=== PATIENT | female | born 1995 | race Caucasian/White ===

== ENCOUNTER 2020-02-15 16:22 | Outpatient (CLI) | payer SELFPAY ==
[2020-02-17 12:14] LABS: SARS-CoV-2 RNA PCR Negative
== END 2020-02-15 16:23 | disposition home or self-care (01) ==
PROVIDERS: PCP Family Medicine; Visit Provider Family Medicine
DX: Z20.828 Contact with and (suspected) exposure to other viral communicable diseases (principal)
CPT/HCPCS: 87635; C9803; U0003

== ENCOUNTER 2020-10-05 19:42 | Emergency (ER) | payer SELFPAY ==
--- NOTE | ~2020-10-05 | XR_ITS ---
EXAMINATION: XR chest 1V portable INDICATION: Midsternal chest pain TECHNIQUE: Portable AP chest at 2044 hours COMPARISON: 11/29/2014 FINDINGS: The lungs are free of acute opacities. There is no pleural effusion or pneumothorax. The ca rdiomediastinal silhouette is normal. The visualized bones and soft tissues are unremarkable. IMPRESSION: 1. No acute cardiopulmonary abnormality. Reviewed, dictated and finalized at location A.
[2020-10-05 19:42] VITALS: BP 144/100; PULSE 109; RESP 20; TEMP 36.8; O2SAT 100
[2020-10-05 19:55] VITALS: PULSE 116
--- NOTE | 2020-10-05 20:06 | ECG_ITS ---
Measurements Intervals [place] Rate: 98 P: 78 CA: 146 QRS: 93 QRSD: 90 T: 73 QT: 361 QTc: 461 Interpretive Statements SINUS RHYTHM RIGHT AXIS DEVIATION BASELINE ARTIFACT- II, III, AVL, AVF, V1-V2 BORDERLINE ECG Electronically Signed On 10-06-2020 7:47:58 CDT by Gonzalo Ruiz D.O.
--- NOTE | 2020-10-05 20:24 | ED.CHESTPAIN ---
HPI - Chest Pain General Chief Complaint: Chest Pain Stated Complaint: chest pain Time Seen by Provider: 10/05/20 19:45 Source: patient, RN notes reviewed and police Mode of arrival: ambulatory Limitations: no limitations History of Present Illness MD complaint: chest pain (mild left chest pain x 1 hr.) Pertinent past history: other (pt occasionally has chest pain, during panic attacks.) Onset (ago): hour(s) (1) Timing of current episode: episodic Prior episodes: Yes Onset: during exertion Pain location: left chest Pain radiation: none Severity: mild Pain scale (0-10): 3 Quality: aching and dull Relieving factors: nothing Exacerbating factors: exertion Treatment prior to arrival: none Risk Factors Coronary artery disease risk factors: smoking history Thoracic aortic dissection risk factors: none Related Data Home Medications Medication Instructions Recorded Confirmed No Home Medications 08/17/20 10/05/20 Allergies Allergy/AdvReac Type Severity Reaction Status Date / Time Sulfa (Sulfonamide Allergy Unknown Unknown Verified 08/17/20 14:26 Antibiotics) Sulfonamides Allergy Intermediate Unknown Uncoded 08/17/20 14:26 Review of Systems Review of Systems: All systems reviewed & are unremarkable except as noted in HPI and below Constitutional: Constitutional: Reports as per HPI and Reports no additional constitutional complaints Eyes: Eyes: Reports as per HPI and Reports no additional eye complaints ENT: Reports system reviewed and no additional complaints, except as documented and Reports as per HPI Cardiovascular: Cardiovascular: Reports as per HPI and Reports no additional cardiovascular complaints Respiratory: Respiratory: Reports as per HPI and Reports no additional respiratory complaints Gastrointestinal: Gastrointestinal: Reports as per HPI and Reports no additional gastrointestinal complaints Genitourinary: Genitourinary: Reports no additional female genitourinary complaints and Reports as per HPI Musculoskeletal: Musculoskeletal: Reports no additional musculoskeletal complaints and Reports as per HPI Integumentary/Breasts: Skin/Breast: Reports system reviewed and no additional complaints, except as docu and Reports as per HPI Neurologic: Reports system reviewed and no additional complaints, except as documented and Reports as per HPI Psychiatric: Psychiatric: Reports no additional psychiatric complaints and Reports as per HPI Endocrine: Endocrine: Reports no additional endocrine complaints and Reports as per HPI Hematologic/Lymphatic: Hematologic/Lymphatic: Reports no additional hematologic/lymphatic complaints and Reports as per HPI Allergic/Immunologic: Allergic/Immunologic: Reports no additional allergic/immunologic complaints and Reports as per HPI PMFSH Past Medical History Medical History Panic attack as reaction to stress Family History Family History Grandparent Diabetes mellitus Hypertension Family history of malignant neoplasm of cervix Social History Social History Smoking status: Former smoker Smoking end date: 03/09/15 Alcohol intake: never Substance use type: marijuana Exam Const: General: healthy appearing, no acute distress and alert Nutritional Appearance: well nourished Orientation/consciousness: patient oriented x3 Limitations: no limitations HENMT: Head: normal to inspection Ears: external ears normal and TM's normal bilaterally General nose exam: Normal external nose present and Normal nares present Mouth: Yes moist mucous membranes Eyes: Conjunctivae: conjunctivae normal Pupils: Equal, round and reactive pupils present EOM: EOMs intact bilaterally Neck: Neck: normal visual inspection and no lymphadenopathy Chest: Chest palpation & inspection: normal inspection of the chest Re
[2020-10-05 20:29] LABS: Basophils Absolute Auto 0.06 K/mm3 (0.00-0.10); Basophils Percent Auto 0.8 % (0.0-1.0); Eosinophils Absolute Auto 0.42 K/mm3 (0.02-0.50); Eosinophils Percent Auto 5.8 % (1.0-6.0); Hematocrit 38.8 % (35.0-49.0); Hemoglobin 12.9 g/dL (12.0-15.0); Immature Granulocyte Absolute 0.02 K/mm3 (0.00-0.00); Immature Granulocyte Percent A 0.3 % (0.0-0.0); Lymphocytes Absolute Auto 2.87 K/mm3 (1.10-4.50); Lymphocytes Percent Auto 39.8 % (18.0-42.0); Mean Corpuscular HGB Conc 33.2 g/dL (32.0-36.0); Mean Corpuscular Hemoglobin 30.1 pg (27.0-31.0); Mean Corpuscular Volume 90.7 fL (78.0-102.0); Mean Platelet Volume 8.9 fl (9.2-11.8); Monocytes Absolute Auto 0.49 K/mm3 (0.10-0.90); Monocytes Percent Auto 6.8 % (2.0-11.0); Neutrophils Absolute Auto 3.4 K/mm3 (1.7-7.2); Neutrophils Percent Auto 46.5 % (50.0-70.0); Platelet Count Result 267 K/mm3 (150-420); Red Blood Count 4.28 M/mm3 (4.20-5.40); White Blood Count 7.2 K/mm3 (4.8-10.8)
[2020-10-05 20:46] LABS: Alanine Aminotransferase 39 U/L (14-59); Alkaline Phosphatase 39 U/L (46-116); Anion Gap 12 mmol/L (8-16); Aspartate Amino Transferase 17 U/L (15-37); Bilirubin,Total 0.3 mg/dL (0.00-1.00); Blood Urea Nitrogen 13 mg/dL (7-18); Calcium 8.5 mg/dL (8.5-10.1); Carbon Dioxide 26 mmol/L (21-32); Chloride 105 mmol/L (98-108); Estimated CRCL calculation 83 ml/min; Estimated Glomerular Filt Rate > 60; Glucose 95 mg/dL (70-99); Osmolality Calculated 296 mOsm/kg (285-295); Potassium 3.8 mmol/L (3.5-5.1); SPREG INTERNAL CONTROL Positive; Serum Qual hCG Negative; Sodium 143 mmol/L (136-145); Total Protein 6.4 g/dL (6.4-8.2); Troponin I < 4.0 ng/L (0.00-60.4)
[2020-10-05] MEDS: IBUPROFEN 400 MG TABLET 800 MG PO (20:52)
[2020-10-05] MEDS: ASPIRIN 325 MG ENTERIC TABLET PO (20:52)
[2020-10-05 20:53] VITALS: BP 139/91; PULSE 80; RESP 17; TEMP 36.6; O2SAT 99
== END 2020-10-05 21:02 | disposition home or self-care (01) ==
PROVIDERS: Emergency Provider Emergency Medicine; PCP Family Medicine
DX: R07.89 Other chest pain (principal)
CPT/HCPCS: 36415; 71045; 80053; 84484; 84703; 85025; 93005; 99283; 99284; A9270

== ENCOUNTER 2021-04-02 01:54 | Emergency (ER) | payer MEDICAID, SELFPAY ==
--- NOTE | 2021-04-02 02:03 | ED.ABDPAIN ---
HPI - Abdominal Pain General Chief Complaint: Abdominal Pain Stated Complaint: Adominal pain Time Seen by Provider: 04/02/21 02:03 Source: patient Mode of arrival: ambulatory Limitations: no limitations History of Present Illness HPI narrative: 26-year-old woman comes in today complaining low abdominal pain that is worse with movement, cough and sneeze, and after eating. She states that she feels nauseated when the pain is at its worst. She states that she had fever approximately 5 days ago after having had some back pain. She has had her no fever since and has vaginal discharge. She has had a COVID exposure recently. Patient expressed concern about her IUD. She denies prior abdominal surgeries. She smokes marijuana. She has had no dysuria, hematuria, diarrhea, cough or cold symptoms, or anorexia. MD elicited complaint: abdominal pain Onset (ago): day(s) (5) Pain Consistency: constant Location: pelvis Severity: severe Radiation: none Migration to: no migration Exacerbating factors: eating and movement Relieving factors: nothing Associated symptoms: nausea, vomiting and fever Related Data Home Medications Medication Instructions Recorded Confirmed No Home Medications 08/17/20 10/05/20 Allergies Allergy/AdvReac Type Severity Reaction Status Date / Time Sulfa (Sulfonamide Allergy Unknown Unknown Verified 08/17/20 14:26 Antibiotics) Sulfonamides Allergy Intermediate Unknown Uncoded 08/17/20 14:26 Review of Systems Review of Systems: All systems reviewed & are unremarkable except as noted in HPI and below Constitutional: Constitutional: Reports fever(s) ENT: Denies nasal congestion and Denies sore throat Cardiovascular: Cardiovascular: Denies chest pain Respiratory: Respiratory: Denies cough and Reports dyspnea Gastrointestinal: Gastrointestinal: Reports abdominal pain, Denies diarrhea, Reports nausea and Reports vomiting Genitourinary: Genitourinary: Denies hematuria, Denies nocturia, Denies dysuria and Reports vaginal discharge Musculoskeletal: Musculoskeletal: Reports back pain, Denies arthralgias and Denies joint swelling Integumentary/Breasts: Skin/Breast: Denies pruritus, Denies erythema and Denies rash Neurologic: Denies vertigo, Denies dizziness and Denies syncope PMFSH Past Medical History Medical History Panic attack as reaction to stress Surgical History Surgical History H/O eye surgery History of Family History Family History Grandparent Diabetes mellitus Hypertension Family history of malignant neoplasm of cervix Social History Social History Smoking status: Current every day smoker Smoking end date: 03/09/15 Alcohol intake: never Substance use type: marijuana Living arrangements: with friend(s) Exam Const: General: healthy appearing and alert Orientation/consciousness: patient oriented x3 Limitations: no limitations Other: Moderate acute distress patient Eyes: Conjunctivae: conjunctivae normal Pupils: Equal, round and reactive pupils present EOM: EOMs intact bilaterally Resp: Effort & Inspection: normal respiratory effort and not labored Auscultation: clear to auscultation bilaterally, no rales, no rhonchi and no wheezes Cardio: Rate: regular rate Rhythm: regular rhythm Heart sounds: no murmurs GI: GI Palp: Yes Soft to palpation, Yes Tenderness to palpation present (GI) (Right left lower quadrants) and No Guarding due to palpation present (GI) Auscultation: normal bowel sounds Skin: General skin exam: normal color, no jaundice and no pallor Rashes: no rashes Neuro: General: patient oriented x3, moves all extremities, no focal motor deficits and CN's II-XI intact bilaterally Speech: normal speech Gait exam (Neuro): No
[2021-04-02 02:08] VITALS: BP 123/85; PULSE 120; RESP 16; TEMP 37.9; O2SAT 100
--- NOTE | 2021-04-02 02:49 | PC.NURSE ---
Patient refuses IV and lab draw. RN states that we are taking too long and I can't wait any longer.
[2021-04-02 03:04] LABS: SARS-CoV-2 RNA PCR Negative (Negative)
== END 2021-04-02 02:51 | disposition left against medical advice (07) ==
PROVIDERS: Emergency Provider Emergency Medicine
DX: R10.30 Lower abdominal pain, unspecified (principal); Z20.822 Contact with and (suspected) exposure to COVID-19
CPT/HCPCS: 99282; 99283; C9803; U0003; U0005

== ENCOUNTER 2022-07-17 07:05 | Emergency (ER) | payer OTHER, SELFPAY ==
--- NOTE | ~2022-07-17 | XR_ITS ---
Left Knee Technique: AP, lateral, and oblique views were obtained. Clinical History: Pain Findings: No fracture or dislocation is seen. Osseous alignment is anatomic. There is evidence of shannan or ACL reconstructive surgery. Joint spaces are preserved without degenerative or erosive change. Sof t tissues are unremarkable. No joint effusion is seen. Impression: No acute reality seen. Evidence of prior ACL reconstruction surgery. Reviewed, dictated and finalized at location M. Impression: No acute reality seen. Evidence of prior ACL reconstruction surgery.
[2022-07-17 07:05] VITALS: BP 140/104; PULSE 100; RESP 18; TEMP 37.3; O2SAT 100
--- NOTE | 2022-07-17 07:49 | ED.LOWEXIN ---
HPI - Extremity Injury (Lower) General Chief Complaint: Extremity Injury, Lower Stated Complaint: left knee pain Time Seen by Provider: 07/17/22 07:07 Source: patient Mode of arrival: ambulatory Limitations: no limitations History of Present Illness HPI Narrative: this is a 27-year-old female that presents with left knee pain after she was had a injury approximately 1 week ago, there is currently pain with movement palpation and with weight-bearing with no swelling no bruising patient has had a prior history of ACL repair. No other injuries has good strong brisk popliteal and radial pulse on the left MD complaint: knee injury Onset (ago): week(s) Injury: Left: knee ( tender medial aspect of left knee with movement and palpation) Type of Injury: inversion Place: street/outdoors Severity: mild Severity scale (1-10): 4 Relieving factors: immobilization Exacerbating factors: weight bearing, movement and palpation Context: fall Associated symptoms: snap/pop sensation Related Data Home Medications Medication Instructions Recorded Confirmed No Home Medications 08/17/20 10/05/20 Allergies Allergy/AdvReac Type Severity Reaction Status Date / Time Sulfa (Sulfonamide Allergy Unknown Unknown Verified 07/17/22 07:14 Antibiotics) Sulfonamides Allergy Intermediate Unknown Uncoded 08/17/20 14:26 Review of Systems Review of Systems: All systems reviewed & are unremarkable except as noted in HPI and below PMFSH Past Medical History Medical History Panic attack as reaction to stress Surgical History Surgical History H/O eye surgery History of Family History Family History Grandparent Diabetes mellitus Hypertension Family history of malignant neoplasm of cervix Social History Social History Smoking status: Current every day smoker Smoking end date: 03/09/15 Alcohol intake: never Substance use type: marijuana Living arrangements: with friend(s) Exam Const: General: healthy appearing Nutritional Appearance: well nourished Orientation/consciousness: patient oriented x3 Limitations: no limitations HENMT: Head: normal to inspection Eyes: Conjunctivae: conjunctivae normal Pupils: Equal, round and reactive pupils present EOM: EOMs intact bilaterally Neck: Neck: normal visual inspection, no lymphadenopathy and no meningeal signs Chest: Chest palpation & inspection: normal inspection of the chest Resp: Effort & Inspection: normal respiratory effort Auscultation: clear to auscultation bilaterally Cardio: Rate: regular rate Rhythm: regular rhythm GI: GI Palp: Yes Soft to palpation Auscultation: normal bowel sounds : General: Yes bladder normal to palpation Skin: General skin exam: normal color Rashes: no rashes Wounds: no wounds Neuro: General: patient oriented x3 and moves all extremities Extrem: General: normal to inspection Other: tender left knee medial aspect with palpation and movement with negative drawer sign negative Ana Lilia sign. Psych: Mental Status: mental status grossly normal Affect: normal affect Course Course Emergency Course: Patient declined any pain medication, will apply Skyler wrap and x-rays performed and reviewed with patient which showed no acute fractures. Vital Signs Vital signs: Vital Signs Pulse Rate 100 07/17/22 07:05 Respiratory Rate 18 07/17/22 07:05 Blood Pressure 140/104 H 07/17/22 07:05 Pulse Oximetry 100 07/17/22 07:05 Oxygen Delivery Room Air 07/17/22 07:05 Pulse Rate 100 07/17/22 07:05 Respiratory Rate 18 07/17/22 07:05 Blood Pressure 140/104 H 07/17/22 07:05 Pulse Oximetry 100 07/17/22 07:05 Oxygen Delivery Room Air 07/17/22 07:05 Critical Care Time Criti
[2022-07-17 08:14] VITALS: BP 118/62; PULSE 62; RESP 14; TEMP 37.1; O2SAT 100
== END 2022-07-17 08:20 | disposition home or self-care (01) ==
PROVIDERS: Emergency Provider Emergency Medicine
DX: S83.92XA Sprain of unspecified site of left knee, initial encounter (principal); Z87.891 Personal history of nicotine dependence; X58.XXXA Exposure to other specified factors, initial encounter
CPT/HCPCS: 73562; 99283

== ENCOUNTER 2022-09-22 22:12 | Emergency (ER) | payer OTHER, SELFPAY ==
[2022-09-22 22:13] VITALS: BP 132/98; PULSE 99; RESP 18; TEMP 37.2; O2SAT 100
--- NOTE | 2022-09-22 22:43 | ED.GENADULT ---
HPI - General Adult General Chief complaint: Skin/Abscess/Foreign Body Stated complaint: Poison [place] History of Present Illness HPI narrative: 27yo woman presents with itchy red spots all over her trunk and extremities after cutting down a tree that had poison sumac all around it. No fevers or chills. Related Data Allergies Allergy/AdvReac Type Severity Reaction Status Date / Time Sulfa (Sulfonamide Allergy Unknown Unknown Verified 07/17/22 07:14 Antibiotics) Sulfonamides Allergy Intermediate Unknown Uncoded 08/17/20 14:26 Review of Systems Review of Systems: All systems reviewed & are unremarkable except as noted in HPI and below Constitutional: Constitutional: Denies chills and Denies fever(s) Cardiovascular: Cardiovascular: Denies chest pain Respiratory: Respiratory: Denies dyspnea PMFSH Past Medical History Medical History Panic attack as reaction to stress Surgical History Surgical History H/O eye surgery History of Family History Family History Grandparent Diabetes mellitus Hypertension Family history of malignant neoplasm of cervix Social History Social History Smoking status: Current every day smoker Smoking end date: 03/09/15 Alcohol intake: never Substance use type: marijuana Living arrangements: with friend(s) Exam Const: General: healthy appearing and no acute distress Nutritional Appearance: well nourished Eyes: Conjunctivae: conjunctivae normal Resp: Effort & Inspection: normal respiratory effort and not labored Cardio: Rate: regular rate Skin: General skin exam: normal color, no jaundice and no pallor Other: linear raised plaques across the forearms that have been excoriated Course Vital Signs Vital signs: Vital Signs Temperature 37.2 C 09/22/22 22:13 Pulse Rate 99 09/22/22 22:13 Respiratory Rate 18 09/22/22 22:13 Blood Pressure 132/98 H 09/22/22 22:13 Pulse Oximetry 100 09/22/22 22:13 Oxygen Delivery Room Air 09/22/22 22:13 Temperature 37.2 C 09/22/22 22:13 Pulse Rate 99 09/22/22 22:13 Respiratory Rate 18 09/22/22 22:13 Blood Pressure 132/98 H 09/22/22 22:13 Pulse Oximetry 100 09/22/22 22:13 Oxygen Delivery Room Air 09/22/22 22:13 Medical Decision Making MDM Narrative Medical decision making narrative: red itchy rash DDx looks like contact dermatitis, not urticaria, EM, viral or drug rash Vital Signs Vital Signs: Vital Signs Temperature 37.2 C 09/22/22 22:13 Pulse Rate 99 09/22/22 22:13 Respiratory Rate 18 09/22/22 22:13 Blood Pressure 132/98 H 09/22/22 22:13 Pulse Oximetry 100 09/22/22 22:13 Oxygen Delivery Room Air 09/22/22 22:13 Temperature 37.2 C 09/22/22 22:13 Pulse Rate 99 09/22/22 22:13 Respiratory Rate 18 09/22/22 22:13 Blood Pressure 132/98 H 09/22/22 22:13 Pulse Oximetry 100 09/22/22 22:13 Oxygen Delivery Room Air 09/22/22 22:13 Discharge Plan Discharge Clinical Impression: Allergic contact dermatitis due to urushiol from poison sumac Patient Disposition: Home, Self-Care Condition: Improved Additional Instructions: Take the steroids as prescribed with a gradual reduction in number of tablets per day Prescriptions: New dexamethasone 4 mg tablet 4 mg PO TID 3 Days Qty: 18 0RF Rx Instructions: , then take one tablet twice a day for 3 days, then one tablet once daily for 3 days Follow-up/Referrals: Haylee,Abdirahman Erwin NP [Non-Staff] - Time of Disposition: :47
[2022-09-22 23:00] VITALS: BP 132/74; PULSE 85; RESP 18; O2SAT 99
== END 2022-09-22 23:02 | disposition home or self-care (01) ==
PROVIDERS: Emergency Provider Emergency Medicine; PCP Family Medicine
DX: L23.7 Allergic contact dermatitis due to plants, except food (principal); F17.200 Nicotine dependence, unspecified, uncomplicated
CPT/HCPCS: 96372; 99283; J1100

== ENCOUNTER 2023-10-14 01:52 | Emergency (ER) | payer OTHER, SELFPAY ==
[2023-10-14 01:54] VITALS: BP 150/109; PULSE 104; RESP 16; TEMP 36.7; O2SAT 98
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
--- NOTE | 2023-10-14 02:33 | PC.NURSE ---
Pt refused all care. EDP Dr. Rosario thoroughly explained the risks of leaving with a possible spinal cord injury. This RN also explained the risks of leaving against medical advice. Pt was educated on risk factors and signs of spinal cord injury. Pt was a&ox4 and stated she is refusing all care. Pt signed AMA form and this RN took pt out of ed via wheelchair. Pt was not able to bare weight on R leg but continued to state I don't care I'm going home . Pt did not show signs of ETOH or drug use.
== END 2023-10-14 02:30 | disposition left against medical advice (07) ==
PROVIDERS: Emergency Provider Emergency Medicine
DX: S19.9XXA Unspecified injury of neck, initial encounter (principal); R20.0 Anesthesia of skin; Z87.891 Personal history of nicotine dependence; Y35.833A Legal intervention involving a conducted energy device, suspect injured, initial encounter
CPT/HCPCS: 99281

== ENCOUNTER 2024-11-14 13:37 | Outpatient (CLI) | payer OTHER, SELFPAY ==
--- NOTE | ~2024-11-14 | XR_ITS ---
EXAMINATION: XR knee RT min 4V, 11/14/2024 13:50 CDT HISTORY: S89.91XA - Unspecified injury of right lower leg, initial... COMPARISON: No comparisons available. Findings: No acute fracture or malalignment. No significant degenerative changes. Soft tissues unremarkable. Impression: No acute fracture or malalignment. Reviewed, dictated and finalized at location A. Impression: No acute fracture or malalignment.
--- OUTSIDE RECORDS SUMMARY | 2024-11-14 13:41 | XMS_ITS | Clinical Summary ---
Author Organization [employer] - [address]22 [address] [facility] [address] [place] [address] Phone Care Team Providers Care Supervisor [employer]itting And [employer] Name Role Phone Júnior Simpson MD Primary Care Provider [phone] Social History Tobacco Use Types Packs/Day Years Used Date Smoking Tobacco: Never Assessed Comments Unknown Sex and Gender Information Value Date Recorded Sex Assigned at Not on file Legal Sex Female 11:26 AM CDT Gender Identity Not on file Sexual Orientation Not on file Plan of Treatment Health Maintenance Due Date Last Done Comments HPV/Cotest (21-29) 2014 DTAP/TDAP/TD VACCINES (7 - T d or Tdap) 10/24/2015 10/23/2005, 10/22/1998, 10/17/1994, Additional history exists HPV VACCINES (1 - 3-dose SCD M series) 01/24/2020 CERVICAL CANCER SCREENING 2023 HPV/Cotest (30-65) 2023 PAP SMEAR 2023 INFLUENZA VACCINE (#1) 2024 HEPATITIS B VACCINES Completed 1993, 1993, 1993 Care Teams Supervisor Slitting And Shipping Relationship Specialty Start Date End Date Júnior Simpson MD [facility] [place] [id number] PCP - General Family Practice 01/06/17
--- OUTSIDE RECORDS SUMMARY | 2024-11-14 13:41 | XMS_ITS | Clinical Summary ---
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 This disclosure is being madepursuant to the Care Everywhere program and may not contain all information available regarding this patient. Last updated 17.[facility] Allergies Active Allergy Reactions Criticality Noted Date Comments Sulfa Drugs Rash 02/05/2009 Medications * Be aware that medications may not be up to date on this document. Alwaysverify current medications with the patient. TYLENOL/CODEINE #3 PO Take by mouth. Active naproxen (NAPROSYN) 500 MG tablet Take 500 mg by mouth 2 times daily. Active azithromycin (ZITHROMAX) 250 MG tablet Take by mouth. Take 2 tablets now, then 1 tablet daily for 4 days. 6 Tab 0 03/14/2010 Active albuterol HFA (VENTOLIN HFA) 8 gram inhaler Inhale 2 Puffs by mouth. 2 puffs TID 1 Inhaler 03/14/2010 Active AeroChamber Plus (AEROCHAMBER) Use as directed. 0 03/14/2010 Active Dextromethorpha n HBr (SUCRETS DM MT) by Mouth/Throat route. Active Chlorpheniramin e-Pseudoeph (DECONGESTANT + PO) Take by mouth. Active Phenylephrine-C hlorphen-DM (ROBITUSSIN COUGH/ALLERGY PO) Take by mouth. Active Immunizations Immunization Administration Dates Next Due DTaP VACCINE IM (6wk-6yrs) 10/22/1998,,1993,1993,05/23 HEP A PEDS 2 DOSE 10/21/2007,10/23/2005 HEP B VACCINE, PED/ADOL 1993,1993, HIB BOOSTER 10/17/1994,1993,1993 ,1993 MENINGOCOCAL MENINGITIS 11/20/2005 MMR 10/24/1998,12/11/1994 POLIO OPV 10/22/1998,10/17/1994,1993 ,1993 TDAP (7yrs+) 10/23/2005 Family History Medical History Relation Name Comments Other Father Herpes - eye Allergies Maternal Grandfather Allergies Maternal Grandmother Cancer Maternal Grandmother cervica l Hypercholesterolemia Maternal Grandmother Hypertension Maternal Grandmother Migraine Mother Diabetes Paternal Grandfather Stroke Paternal Grandfather Allergies Paternal Grandmother Hepatitis Paternal Grandmother Relation Name Status Comments Father Maternal Grandfather Maternal Grandmother Mother Paternal Grandfather Paternal Grandmother Social History Tobacco Use Types Packs/Day Years Used Date Smoking Tobacco: Never Alcohol Use Standard Drinks/Week Comments Not Asked 0 (1 standard drink = 0.6 oz pur e alcohol) Comments No Sex and Gender Information Value Date Recorded Sex Assigned at Not on file 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 Gender Identity Not on file Sexual Orientation Not on file Last Filed Vital Signs Vital Sign Reading Time Taken Comments Blood Pressure - - Pulse 72 03/14/2010 1:14 PM 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 Temperature 36.6 C (97.8 F) 07/15/2010 10:10 AM CDT Respiratory Rate - - Oxygen Saturation 98% 03/14/2010 1:14 PM 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 Inhaled Oxygen Concentration - - Weight 72.2 kg (159 lb 3.2 oz) 07/15/2010 10:10 AM CDT Height - - Body Mass Index - - Plan of Treatment Health Maintenance Due Date Last Done Comments HIV SCREENING 01/24/2008 HEPATITIS C SCREENING 01/19/2011 DTAP/TDAP/TD VACCINES (7 - Td or Tdap) 10/24/2015 10/23/2005, 10/22/1998, 10/17/1994, Additional history exists HPV VACCINE (1 - 3-dose SCDM series) 01/24/2020 DEPRESSION SCREENING 03/09/2024 COVID-19 VACCINE ( - season) 2024 INFLUENZA VACCINE (#1) 2024 ZOSTER VACCINE (1 of 2) 2043 HEPATITIS B VACCINE Completed 1993, 1993, 1993 HIB VACCINE Completed 10/17/1994, 10/1993, 1993, Additional history exists MENINGOCOCCAL GROUPS A/C/Y/W VACCINE Aged Out 11/20/2005 No longer eligible based on patient's age to complete this topic MENINGOCOCCAL (Group B) VACCINE SHARED DECISION-MAKING Aged Out No longer eligible based on patient's age to complete this topic PNEUMOCOCCAL VACCINE Aged Out No long er eligible based on patient's age to complete this topic Care Teams Fun[employer] 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
== END 2024-11-14 13:38 | disposition home or self-care (01) ==
PROVIDERS: PCP Family Medicine; Visit Provider Family Medicine
DX: S89.91XA Unspecified injury of right lower leg, initial encounter (principal)
CPT/HCPCS: 73564